=== PATIENT | female | born 1975 | race Caucasian/White ===

== ENCOUNTER 2017-03-06 14:22 | Outpatient (CLI) | payer BC ==
[2017-03-06 15:04] LABS: Appearance,Urine Clear (Clear); Bilirubin,Urine Negative (Negative); Glucose,Urine (UA) Negative (Negative); Ketones,Urine Negative (Negative); Leukocyte Esterase,Urine Large (Negative); Mucus,Urine Rare /hpf; Nitrite,Urine Negative (Negative); PH, Urine 5.5 (5.0-8.0); Particle Count 2672; Protein,Urine Trace (Negative); RBC,Urine 1 /hpf (0-5); Specific Gravity,Urine 1.021 (1.001-1.035); Squamous Epithelial Cell,Urine 4 /hpf (0-4); UA Billing (MACRO vs. MICRO) MICRO; Urobilinogen,Urine <2.0 mg/dL (<2.0); WBC,Urine 12 /hpf (0-5)
[2017-03-06 15:32] VITALS: BP 158/86; PULSE 121; RESP 16; TEMP 96.5
== END 2017-03-06 15:19 | disposition home or self-care (01) ==
LOC: FBPOP 14:22
PROVIDERS: ATTEND Obstetrics & Gynecology
DX: O99.89 Other specified diseases and conditions complicating pregnancy, childbirth and the puerperium (principal); R10.2 Pelvic and perineal pain; Z3A.30 30 weeks gestation of pregnancy
CPT/HCPCS: 81001

== ENCOUNTER 2017-03-29 16:57 | Outpatient (CLI) | payer BC ==
[2017-03-29 17:58] LABS: Basophils % (A) 0 %; CH 31.4; CHCM 35.9; Eosinophils # (A) 0.1 k/uL (0-0.7); Eosinophils % (A) 1 %; HCT 34.2 % (34.0-46.0); HDW 3.36; Luc # (Auto) 0.32; Luc % (Auto) 3; Lymphocytes # (A) 1.9 k/uL (1.0-4.8); Lymphocytes % (A) 20 %; MCHC 35.2 g/dL (31.0-37.0); Mean Platelet Volume 7.3; Monocytes # (A) 0.7 k/uL (0-1.0); Monocytes % (A) 7 %; Neutrophils # (A) 6.7 k/uL (1.3-7.7); Neutrophils % (A) 69 %; RBC 3.89 m/uL (3.80-5.40); RDW 14.3 % (11.5-15.5); WBC 9.7 k/uL (3.8-10.6); WBC (Perox) 9.91
[2017-03-29 18:18] LABS: ALT 32 U/L (9-52); AST 18 U/L (14-36); Blood Urea Nitrogen 7 mg/dL (7-17); LDH 381 U/L (313-618); Non-African American GFR(MDRD) >60 (>60 ml/min/1.73 sqM); Uric Acid 3.3 mg/dL (3.7-7.4)
[2017-03-29 18:35] LABS: Amorphous Sediment,Urine Rare /hpf; Appearance,Urine Clear (Clear); Bacteria,Urine Occasional /hpf; Bilirubin,Urine Negative (Negative); Glucose,Urine (UA) Trace (Negative); Ketones,Urine Negative (Negative); Leukocyte Esterase,Urine Large (Negative); Nitrite,Urine Negative (Negative); PH, Urine 6.5 (5.0-8.0); Particle Count 3372; Protein,Urine Negative (Negative); RBC,Urine 4 /hpf (0-5); Specific Gravity,Urine 1.004 (1.001-1.035); Squamous Epithelial Cell,Urine 3 /hpf (0-4); UA Billing (MACRO vs. MICRO) MICRO; Urobilinogen,Urine <2.0 mg/dL (<2.0); WBC,Urine 11 /hpf (0-5)
[2017-03-29] MEDS ORDERED: WATER IVPB ONE ×2 (18:52)
[2017-03-29] MEDS ORDERED: MAGNESIUM SULFATE IVPB ONE ×2 (18:52)
[2017-03-29] MEDS ORDERED: DEXTROSE 5% IVPB ONE ×2 (18:52)
[2017-03-29] MEDS ORDERED: LABETALOL 200 MG TAB PO STA (18:52)
[2017-03-29] MEDS ORDERED: LIDOCAINE 1% 20 ML VIAL (10MG/ML) FOR IV START INTRADERMA PRN (18:52)
[2017-03-29] MEDS ORDERED: MAGNESIUM SULFATE-WATER PMX 4 GM in WATER FOR INJECTION 50 50ML.BAG IVPB ONE (18:58)
[2017-03-29] MEDS ORDERED: LACTATED RINGERS 1,000 ML IV SCH (19:00)
[2017-03-29] MEDS ORDERED: MAGNESIUM SULFATE WATER PMX IVPB ONE ×2 (19:15→19:30)
[2017-03-29] MEDS ORDERED: WATER FOR INJECTION IVPB ONE ×2 (19:15→19:30)
--- NOTE | 2017-03-29 19:17 | P.HPOB ---
History of Present Illness H&P Date: 03/29/17 Chief Complaint: Visual changes, elevated blood pressures This is a 41-year-old female 5 para 1 at 33-0/7 weeks today who presented to the office for routine nonstress test but complained of visual changes and vertigo symptoms starting today. She also complains of numbness and tingling in her right arm and fingers but generally only happens at night but has been happening all-day today. She has experienced dizziness and some tunnel vision type changes throughout her but today has been much worse. She is on labetalol 50 mg twice a day for chronic hypertension. She also has been followed by maternal- medicine due to a history of delivery at 34 weeks. She has been receiving Carolyn injections weekly. She also has a complete previa and has been followed with ultrasound through Dr. Haley Patel. She was observed in labor and delivery triage and labs were drawn. All of her labs are within normal limits and her protein is negative. Her blood pressures however have been elevated in triage anywhere from the 130s to 180s over 80s to 90s. I did speak with Dr. Haley Patel who does recommend that she be transferred to [facility] in [place] for further care. Obstetrical history: . She did have one vaginal delivery at 34 weeks. She had 2 other miscarriages. She did have a termination of with her last child due to multiple anomalies. Review of Systems Eyes: bilateral blurred vision, bilateral tunnel vision/blind spots Ears, nose, mouth and throat: Reports vertigo Cardiovascular: Reports dyspnea on exertion, Reports high blood pressure, Reports palpitations, Reports shortness of breath Gastrointestinal: Denies abdominal pain Genitourinary: Reports pelvic pain (Pelvic pressure), Reports Musculoskeletal: Reports arm numbness/tingling (Right arm) Musculoskeletal: bilateral: foot swelling Neurological: Reports headaches, Reports vertigo, Reports visual changes Past Medical History Past Medical History: Hypertension Additional Past Medical History / Comment(s): Chronic hypertension History of Any Multi-Drug Resistant Organisms: None Reported Additional Past Surgical History / Comment(s): D&E, D&C Past Psychological History: No Psychological Hx Reported Smoking Status: Never smoker Past Alcohol Use History: None Reported Past Drug Use History: None Reported Medications and Allergies Home Medications Medication Instructions Recorded Confirmed Type Aspirin [Adult Low Dose Aspirin EC] 81 mg PO DAILY 03/06/17 03/29/17 History Famotidine [Pepcid] 20 mg PO BID 03/06/17 03/29/17 History Folic Acid 0.4 mg PO DAILY 03/06/17 03/29/17 History Labetalol [Trandate] 50 mg PO BID 03/06/17 03/29/17 History Pnv,Calcium 72/Iron/Folic Acid 1 tab PO DAILY 03/06/17 03/29/17 History [ Plus Tablet] Allergies Allergy/AdvReac Type Severity Reaction Status Date / Time doxycycline [From Vibramycin] Allergy Rash/Hives Verified 03/29/17 17:14 fluconazole [From Diflucan] Allergy Rash/Hives Verified 03/29/17 17:14 Penicillins Allergy Rash/Hives Verified 03/29/17 17:14 Exam Osteopathic Statement: *. No significant issues noted on an osteopathic structural exam other than those noted in the History and Physical/Consult. - Vital Signs Vital signs: Intake and Output 03/29/17 03/29/17 03/29/17 06:59 14:59 22:59 Other: Weight 94.801 kg Patient Weight 03/30/17 06:59 Weight 94.801 kg Gen.: No acute distress HEENT: Face appears puffy Heart: Regular rate and rhythm Lungs: Clear to auscultation bilaterally Abdomen: heart tones: Reactive Contractions: Rare Extremities: Puffy in hands and feet. Results Result Diagrams: 03/29/17 17:45 03/29/17 17:45 Abnormal Lab Results - Last 24 Hours (Table) 03/29/17 03/29/17 Range/Units 17:05 17:45 Creatinine 0.50 L (0.52-1.04) mg/dL Uric Acid 3.3 L (3.7-7.4) mg/dL Urine Glucose (UA) Trace H (Negative) Ur Leukocyte Esterase Large H (Negative) Urine WBC 11 H (0-5) /hpf Amorphous Sediment Rare H (None) /hpf Urine Bacteria Occasional H (None) /hpf Assessment and Plan (1) 33 weeks gestation of Status: Acute (2) Pre-eclampsia added to pre-existing hypertension Status: Acute Plan: Proceed with 6 g bolus of magnesium sulfate and labetalol [address] Haley Patel. Will transfer to [facility] in [place] per Dr. Patel. Patient is aware of risks and benefits of transfer and agrees to be transferred by ambulance. Time with Patient: Greater than 30
[2017-03-29] MEDS ORDERED: MAGNESIUM SULFATE-D5W PMX 1 GM in DEXTROSE/WATER 1 100ML.BAG IVPB SCH (20:00)
== END 2017-03-29 20:20 | disposition short-term general hospital (02) ==
LOC: FBPOP 16:57
PROVIDERS: ATTEND Obstetrics & Gynecology
DX: O11.3 Pre-existing hypertension with pre-eclampsia, third trimester (principal); Z3A.33 33 weeks gestation of pregnancy
CPT/HCPCS: 59025; 99215; 96361; 96365; 82565; 83615; 84450; 84460; 84520; 84550; 85025; 81001; J3475; 51702

== ENCOUNTER → 2018-03-26 | Outpatient (CLI) | payer BC ==
[2018-03-26 17:50] LABS: Basophils % (A) 0 %; Eosinophils # (A) 0.2 k/uL (0-0.7); Eosinophils % (A) 2 %; HCT 38.1 % (34.0-46.0); Lymphocytes # (A) 2.5 k/uL (1.0-4.8); Lymphocytes % (A) 24 %; MCH 29.9 pg (25.0-35.0); MCHC 34.2 g/dL (31.0-37.0); MCV 87.4 fL (80.0-100.0); Mean Platelet Volume 6.8; Monocytes # (A) 0.6 k/uL (0-1.0); Monocytes % (A) 6 %; Neutrophils # (A) 6.9 k/uL (1.3-7.7); Neutrophils % (A) 66 %; Platelet Count 265 k/uL (150-450); RBC 4.36 m/uL (3.80-5.40); WBC 10.3 k/uL (3.8-10.6)
[2018-03-26 18:02] LABS: Anion Gap 15 mmol/L; Blood Urea Nitrogen 20 mg/dL (7-17); Calcium 9.5 mg/dL (8.4-10.2); Carbon Dioxide 22 mmol/L (22-30); Chloride 103 mmol/L (98-107); Glucose 111 mg/dL (74-99); Potassium 4.2 mmol/L (3.5-5.1); Sodium 140 mmol/L (137-145)
== END | disposition home or self-care (01) ==
LOC: LABPAT 16:41
PROVIDERS: ATTEND Obstetrics & Gynecology
DX: Z01.818 Encounter for other preprocedural examination (principal); Z01.812 Encounter for preprocedural laboratory examination
CPT/HCPCS: 80048; 85025; 93005

== ENCOUNTER 2018-04-01 05:44 | Inpatient (IN) | payer BC ==
[2018-03-25 10:57] VITALS: BMI 34.1
--- NOTE | 2018-03-31 20:39 | P.HPOB ---
History of Present Illness H&P Date: 03/31/18 Chief Complaint: Menorrhagia, pelvic pain, endometriosis, uterine fibroids This is a 42-year-old female 5 para 2 who presents for total abdominal hysterectomy with bilateral salpingo-oophorectomy and IUD removal due to heavy irregular menses despite Mirena IUD. In addition she continues to have pelvic pain and she does have a history of endometriosis. She has a history of frequent menses and periods lasting 4-7 days with heavy flow and significant pain. She would like permanent surgical treatment to control not only her fertility issues but her pelvic pain and irregular bleeding. She does have a history of 2 laparoscopies in the past with ablation of endometriosis. Her pelvic ultrasound showed a uterus measuring 11.5 x 4.3 x 8.6 cm with a large fibroid in the fundus towards the left of the midline measuring 5.5 cm. The IUD was not identified within the endometrial canal and seemed to reside within the endocervix. Both ovaries appeared normal size. Obstetrical history: . History of 1 vaginal delivery and 1 emergency section. She has a history of 1 termination of , and one miscarriage. She did have a dilation and extraction on her fourth child due to a congenital syndrome that was incompatible with life. Gynecologic history: No history of sexually transmitted diseases. Social history: She is . 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 Review of Systems Constitutional: Reports fatigue Eyes: denies blurred vision, denies pain Ears, nose, mouth and throat: Denies headache, Denies sore throat Cardiovascular: Denies chest pain, Denies shortness of breath Respiratory: Denies cough Gastrointestinal: Denies abdominal pain, Denies diarrhea, Denies nausea, Denies vomiting Genitourinary: Reports dysmenorrhea, Reports menorrhagia, Reports pelvic pain Menstruation: Reports menses variable, Reports period heavy Musculoskeletal: Reports low back pain Integumentary: Denies pruritus, Denies rash Neurological: Reports headaches Psychiatric: Denies anxiety, Denies depression Past Medical History Past Medical History: GERD/Reflux, Hypertension Additional Past Medical History / Comment(s): IRREGULAR & PAINFUL MENSTRUAL PERIODS. Endometriosis, history of optic neuritis History of Any Multi-Drug Resistant Organisms: None Reported Past Surgical History: Adenoidectomy, Section, Tonsillectomy Additional Past Surgical History / Comment(s): D&E, D&C, BREAST REDUCTION, RIGHT BREAST LUMPECTOMY, LAPAROSCOPY X2 FOR ENDOMETRIOSIS. Past Anesthesia/Blood Transfusion Reactions: No Reported Reaction, Motion Sickness Past Psychological History: No Psychological Hx Reported Smoking Status: Never smoker Past Alcohol Use History: Occasional Additional Past Alcohol Use History / Comment(s): STATES OVER 7 DRINKS PER WEEK. Past Drug Use History: None Reported - Past Family History Mother Family Medical History: Hypertension, Osteoarthritis (OA) Medications and Allergies Home Medications Medication Instructions Recorded Confirmed Type Acetaminophen Tab [Tylenol Tab] 1,000 mg PO Q6HR PRN 03/25/18 03/25/18 History Ibuprofen 800 mg PO BID PRN 03/25/18 03/25/18 History Metoprolol Succinate (ER) [Toprol 50 mg PO DAILY 03/25/18 03/31/18 History Xl] Multivit with Calcium,Iron,Min 1 each PO DAILY 03/25/18 03/25/18 History [Women's Multivitamin] Allergies Allergy/AdvReac Type Severity Reaction Status Date / Time erythromycin base Allergy Unknown Rash/Hives, Verified 03/25/18 10:43 Vomiting Sulfa (Sulfonamide Allergy Unknown Rash/Hives, Verified 03/25/18 10:44 Antibiotics) Vomiting doxycycline [From Vibramycin] Allergy Rash/Hives, Verified 03/25/18 10:43 Vomiting fluconazole [From Diflucan] Allergy Swelling Verified 03/25/18 10:43 of Tongue Penicillins Allergy Rash/Hives, Verified 03/25/18 10:43 Vomiting Exam Osteopathic Statement: *. No significant issues noted on an osteopathic structural exam other than those noted in the History and Physical/Consult. HEENT: Within normal limits Heart: Regular rate and rhythm Lungs: Clear to auscultation bilaterally Abdomen: Soft, nontender Pelvic exam: Uterus is mid position, nontender, with no adnexal masses or tenderness noted. IUD string is visible. Extremities: Negative Homans Assessment and Plan (1) Menorrhagia with irregular cycle Status: Acute Code(s): N92.1 - EXCESSIVE AND FREQUENT MENSTRUATION WITH IRREGULAR CYCLE SNOMED Code(s): 055256544 (2) Pelvic pain Status: Acute Code(s): R10.2 - PELVIC AND PERINEAL PAIN SNOMED Code(s): 96602592 (3) Uterine leiomyoma Status: Acute Code(s): D25.9 - LEIOMYOMA OF UTERUS, UNSPECIFIED SNOMED Code( s): 58069483 (4) Endometriosis Status: Acute Code(s): N80.9 - ENDOMETRIOSIS, UNSPECIFIED SNOMED Code(s): 496333280 Plan: Proceed with total abdominal hysterectomy with bilateral salpingo-oophorectomy and IUD removal. I have discussed the risks, benefits, and alternative therapies for the above- mentioned procedure and for both sedation/anesthesia as well as necessary blood products administration, if indicated, as they pertain to this patient. The patient has indicated her understanding and acceptance of the risks and procedures discussed.
[~2018-04-01 05:44] MED LIST: DEXAMETHASONE SOD PHOSPHATE 10 MG/ML 1 ML VIAL IV ONE; LIDOCAINE 1% 20 ML VIAL (10MG/ML) FOR IV START INTRADERMA PRN; MIDAZOLAM 2 MG/2 ML VIAL IV PRN; SCOPOLAMINE 1.5MG/72HR PATCH TRANSDERM ONE
[2018-04-01] MEDS ORDERED: ceFAZolin IN SWFI 2 GM/20 ML SYRINGE IVP ONE (06:00)
[2018-04-01] MEDS: LACTATED RINGERS 1,000 ML IV SCH ×4 (06:43→21:43)
[2018-04-01] MEDS ORDERED: ONDANSETRON 4 MG/2 ML VIAL ONE ×2 (06:45→07:32)
[2018-04-01] MEDS ORDERED: MIDAZOLAM 2 MG/2 ML VIAL ONE ×2 (07:01→07:32)
[2018-04-01] MEDS ORDERED: fentaNYL (PF) 50 MCG/ML 2 ML AMP ONE ×3 (07:01→07:32)
[2018-04-01] MEDS ORDERED: MIDAZOLAM 2 MG/2 ML VIAL IVP ONE (07:15)
[2018-04-01] MEDS ORDERED: fentaNYL (PF) 50 MCG/ML 2 ML AMP IVP ONE (07:15)
[2018-04-01] MEDS ORDERED: LIDOCAINE 1% INJ 10MG/ML (20 ML MDV) ONE (07:32)
[2018-04-01] MEDS ORDERED: ROCURONIUM BROMIDE 10 MG/ML 10 ML VIAL IV ONE (07:32)
[2018-04-01] MEDS ORDERED: PROPOFOL 10 MG/ML 20 ML VIAL IV ONE (07:32)
[2018-04-01] MEDS ORDERED: NEOSTIGMINE 1 MG/ML 10 ML VIAL ONE (07:32)
[2018-04-01] MEDS ORDERED: SUCCINYLCHOLINE CHLORIDE 100 MG/5 ML SYR IV ONE (07:32)
[2018-04-01] MEDS ORDERED: MORPHINE SULFATE (PF) 0.3 MG/0.3 ML SYR ONE (07:32)
[2018-04-01] MEDS ORDERED: GLYCOPYRROLATE 0.2 MG/ML 2 ML VIAL ONE (07:32)
[2018-04-01] MEDS ORDERED: ZOLPIDEM 5 MG TAB PO PRN (07:40)
[2018-04-01] MEDS ORDERED: diphenhydrAMINE 50 MG/ML 1 ML VIAL IVP PRN (07:40)
[2018-04-01] MEDS ORDERED: SIMETHICONE 80 MG CHEWABLE PO PRN (07:40)
[2018-04-01] MEDS ORDERED: ONDANSETRON 4 MG/2 ML VIAL IVP PRN (07:40)
[2018-04-01] MEDS ORDERED: METOCLOPRAMIDE 5 MG/ML 2 ML VIAL IVP PRN (07:40)
--- NOTE | 2018-04-01 08:54 | P.OP ---
Date of Procedure: 04/01/18 Preoperative Diagnosis: 1. Menorrhagia with irregular cycle. 2. Pelvic pain. 3. Dysmenorrhea. 4. Endometriosis. Postoperative Diagnosis: Same Procedure(s) Performed: Total abdominal hysterectomy with bilateral salpingo-oophorectomy Removal of IUD Anesthesia: AUGUSTINE Surgeon: Aurora Campbell Train Caller #1: Lyudmila Hodges Estimated Blood Loss (ml): 250 Pathology: other (Uterus with bilateral tubes and ovaries and cervix) Condition: stable Disposition: floor Indications for Procedure: This is a 42-year-old female 5 para 2 who presents for total abdominal hysterectomy with bilateral salpingo-oophorectomy and IUD removal due to heavy irregular menses despite Mirena IUD. In addition she continues to have pelvic pain and she does have a history of endometriosis. She has a history of frequent menses and periods lasting 4-7 days with heavy flow and significant pain. She would like permanent surgical treatment to control not only her fertility issues but her pelvic pain and irregular bleeding. She does have a history of 2 laparoscopies in the past with ablation of endometriosis. Her pelvic ultrasound showed a uterus measuring 11.5 x 4.3 x 8.6 cm with a large fibroid in the fundus towards the left of the midline measuring 5.5 cm. The IUD was not identified within the endometrial canal and seemed to reside within the endocervix. Both ovaries appeared normal size. Operative Findings: Uterus is bulky with a fairly large fibroid on the left side of the uterus near the lower uterine segment. There was an adhesion from the right side of the uterus to the anterior pelvic sidewall. Both ovaries appeared small and normal. Both tubes appeared normal. Description of Procedure: The patient is taken to the operating room where she is placed in the dorsal lithotomy position. She is prepped and draped in the normal sterile fashion including Smith catheter insertion and vaginal prep. Next a bivalve speculum was placed in the patient's vagina and a ring forcep was used to remove the IUD. A Mirena IUD was noted and discarded. It did appear to be low in the cervix. Next the patient was repositioned in a dorsal supine position. She was prepped abdominally. A Pfannenstiel skin incision is made through the previous laparotomy scar with a scalpel. A second knife was used to carry the incision down to the underlying layer of fascia. The fascia was nicked in the midline with a scalpel and then extended laterally bilaterally with Wagner scissors. The superior aspect of the fascial incision was grasped with Siddharth clamps, elevated off the underlying rectus muscle in the midline and then cut with Wagner scissors. The inferior aspect of the fascial incision was grasped with Siddharth clamps, elevated off the underlying rectus muscle in the midline and then cut with Wagner scissors. Next the peritoneum was identified and entered sharply with Wagner scissors. It is extended superiorly and in fairly with Metzenbaum scissors with good visualization of underlying structures. Next the [place] retractor is placed in the bladder blade was inserted. The bowels were packed with a 3 yard laparotomy sponge. Next the uterus is brought up incision and the corneal regions are grasped with Monisha clamps on both sides. Next the infundibulopelvic ligaments are clamped on either side with Gilberto clamps, cut with Wagner scissors, and then sutured with 0 Vicryl suture in Gilberto transfixion stitches. Next the uterine ovarian ligament is clamped with a Gilberto clamp, cut with Wagner scissors, and then sutured with 0 Vicryl suture in Gilberto transfixion stitch. The same procedure is carried out on the right side. The uterine arteries are then clamped with Gilberto clamp on either side. The vesicouterine peritoneum was sharply dissected away from the bladder with Metzenbaum scissors and pushed inferiorly. There was a fairly dense adhesion on the right side of the uterus attached near the bladder and this was clamped with Gilberto clamps, cut and then sutured with 0 Vicryl suture in Gilberto transfixion stitches. The uterine arteries are then cut with Wagner scissors, and sutured with 0 Vicryl suture in Gilberto transfixion stitches. Next the cardinal ligaments were clamped on either side with Gilberto clamp, cut with Wagner scissors, and sutured with 0 Vicryl suture in Gilberto transfixion stitches. The uterosacral ligaments are clamped on either side with Gilberto clamps, cut with Wagner scissors, and sutured with 0 Vicryl suture in Gilberto transfixion stitches on either side. The edges of the vaginal cuff were clamped on either side with a Gilberto clamp, cut with Wagner scissors, and sutured with 0 Vicryl suture in Gilberto transfixion stitches and held on either side. The vaginal mucosa was then cut just below the level of the cervix and the specimen is removed from the field. The edges of the vaginal cuff were held with Siddharth clamps. Next the previously held corners of each side of the vaginal cuff were then whipstitched along the connective tissue on either side and brought through the corner of the cuff and tied. Next the vaginal cuff was sutured with 0 Vicryl suture in a running locked fashion. Hemostasis was noted. Copious irrigation is carried out with warm saline. Excellent hemostasis is noted. All sponges are removed from the abdomen. The peritoneum is then closed with 0 Vicryl suture in a running fashion. The muscle was then reapproximated with 0 Vicryl suture in interrupted fashion. The fascia layer is then closed with 0 PDS suture in a running fashion with the knots buried on either side and in the midline. Next the subcutaneous tissues closed with 2-0 Vicryl suture in a running fashion. The skin is closed with abdulaziz. All sponge and needle counts are correct and the patient is taken to recovery room in stable condition.
[2018-04-01] MEDS: fentaNYL (PF) 50 MCG/ML 2 ML AMP IV PRN ×2 (09:08→09:14)
[2018-04-01] MEDS: KETOROLAC 30 MG/ML 1 ML VIAL IVP PRN (09:11)
[2018-04-01] MEDS ORDERED: MORPHINE SULFATE 2 MG/ML SYRINGE IVP PRN (09:45)
[2018-04-01] MEDS ORDERED: NALBUPHINE 10 MG/ML VIAL (10ML MDV) IV PRN (09:45)
[2018-04-01] MEDS ORDERED: NALOXONE 0.4 MG/ML 1 ML VIAL IV PRN (09:45)
[2018-04-01] MEDS: HYDROmorphone 1 MG/ML 1 ML SYRINGE IVP ONE ×2 (09:46→10:06)
[2018-04-01] MEDS ORDERED: LACTATED RINGERS 1,000 ML IV ONE (09:57)
[2018-04-01] MEDS: SENNOSIDES-DOCUSATE SODIUM 1 EACH TAB PO SCH ×2 (11:36→20:22)
[2018-04-01] MEDS: IBUPROFEN 600 MG TAB PO PRN (23:50)
[2018-04-02] MEDS: IBUPROFEN 600 MG TAB PO PRN ×3 (05:47→20:23)
[2018-04-02 07:15] LABS: Basophils % (A) 0 %; Eosinophils # (A) 0.1 k/uL (0-0.7); Eosinophils % (A) 1 %; HCT 31.2 % (34.0-46.0); HGB 10.4 gm/dL (11.4-16.0); Lymphocytes # (A) 2.5 k/uL (1.0-4.8); Lymphocytes % (A) 20 %; MCH 29.3 pg (25.0-35.0); MCHC 33.3 g/dL (31.0-37.0); MCV 87.9 fL (80.0-100.0); Mean Platelet Volume 6.9; Monocytes # (A) 0.7 k/uL (0-1.0); Monocytes % (A) 6 %; Neutrophils # (A) 8.7 k/uL (1.3-7.7); Neutrophils % (A) 72 %; Platelet Count 255 k/uL (150-450); RBC 3.55 m/uL (3.80-5.40); WBC 12.1 k/uL (3.8-10.6)
--- NOTE | 2018-04-02 08:40 | P.PN ---
Subjective Progress Note Date: 04/02/18 Principal diagnosis: Status post TANNA/BSO postoperative day #1 Patient has been ambulating. Her pain is been fairly well controlled overnight however she is starting to get uncomfortable this morning. Her catheter was removed this morning but she has not urinated yet. Her bleeding has been very minimal. She has not passed flatus yet but does feel gurgling going on. She denies any nausea or vomiting. Objective - Vital Signs Vital signs: Vital Signs Temp 98.2 F 04/02/18 04:00 Pulse 70 04/02/18 04:00 Resp 16 04/02/18 06:00 BP 94/61 04/02/18 04:00 Pulse Ox 97 04/02/18 04:00 Intake & Output 04/01/18 04/02/18 04/02/18 18:59 06:59 18:59 Intake Total 1600 Output Total 630 1500 Balance 970 -1500 Weight 92.986 kg Intake: IV 1600 Output: Urine 380 1500 Uretheral (Smith) 1500 Estimated Blood Loss 250 - Gastrointestinal Gastrointestinal Comment(s): Incision is clean dry and intact with abdulaziz in place. General gastrointestinal: Present: decreased bowel sounds. Absent: distended, tenderness - Labs CBC & Chem 7: 04/02/18 06:31 Labs: Abnormal Lab Results - Last 24 Hours (Table) 04/02/18 Range/Units 06:31 WBC 12.1 H (3.8-10.6) k/uL RBC 3.55 L (3.80-5.40) m/uL Hgb 10.4 L (11.4-16.0) gm/dL Hct 31.2 L (34.0-46.0) % Neutrophils # 8.7 H (1.3-7.7) k/uL Assessment and Plan Assessment: Impression is status post total abdominal hysterectomy with bilateral salpingo- oophorectomy postoperative day #1 (1) Menorrhagia with irregular cycle Current Visit: Yes Status: Acute Code(s): N92.1 - EXCESSIVE AND FREQUENT MENSTRUATION WITH IRREGULAR CYCLE SNOMED Code(s): 933173675 (2) Pelvic pain Current Visit: Yes Status: Acute Code(s): R10.2 - PELVIC AND PERINEAL PAIN SNOMED Code(s): 72403770 (3) Uterine leiomyoma Current Visit: Yes Status: Acute Code(s): D25.9 - LEIOMYOMA OF UTERUS, UNSPECIFIED SNOMED Code(s): 00746183 (4) Endometriosis Current Visit: Yes Status: Acute Code(s): N80.9 - ENDOMETRIOSIS, UNSPECIFIED SNOMED Code(s): 432493636 Plan: Plan is to Encourage ambulation today. She is advised to let her nurse know when she is passing flatus and diet can be advanced at that time. We'll switch to oral pain medications today.
[2018-04-02] MEDS: METOPROLOL SUCCINATE (ER) 50 MG TAB.ER.24H PO SCH (09:10)
[2018-04-02] MEDS: HYDROcodone/APAP 7.5-325MG 1 EACH TAB PO PRN ×3 (10:10→21:23)
[2018-04-02] MEDS: SENNOSIDES-DOCUSATE SODIUM 1 EACH TAB PO SCH ×2 (10:10→20:22)
--- NOTE | 2018-04-02 10:14 | P.PN ---
Progress Note - Text Anesthesia POD 1. Patient is status post TANNA under general endotracheal anesthesia with intra-thecal preservative free morphine 300 g. Mild pruritus, good post-op analgesia, and no headache or other complication.
[2018-04-03] MEDS: KETOROLAC 30 MG/ML 1 ML VIAL IVP PRN ×2 (01:05→07:29)
[2018-04-03] MEDS: HYDROcodone/APAP 7.5-325MG 1 EACH TAB PO PRN ×2 (04:09→10:13)
[2018-04-03] MEDS: SENNOSIDES-DOCUSATE SODIUM 1 EACH TAB PO SCH ×2 (07:56→23:19)
[2018-04-03] MEDS: METOPROLOL SUCCINATE (ER) 50 MG TAB.ER.24H PO SCH (07:56)
[2018-04-03] MEDS: LACTATED RINGERS 1,000 ML IV SCH ×3 (08:08→08:09)
--- NOTE | 2018-04-03 08:46 | P.PN ---
Subjective Progress Note Date: 04/03/18 Principal diagnosis: Status post TANNA/BSO postoperative day #2 Patient states she had a rough night last night. She had been alternating between ibuprofen and [place] through the day but this was not controlling her pain enough. Last night they switched her to Toradol and [place] and this worked better. I did advise her that she cannot go home on the Toradol and therefore we would need to try to get her comfortable on the Motrin today. She is passing flatus now but no bowel movement. She is ambulating without difficulty. She is urinating without difficulty. Bleeding has almost stopped. Objective - Vital Signs Vital signs: Vital Signs Temp 98.5 F 04/03/18 08:00 Pulse 76 04/03/18 08:00 Resp 18 04/03/18 08:00 BP 137/81 04/03/18 08:00 Pulse Ox 96 04/03/18 08:00 Intake & Output 04/02/18 04/03/18 04/03/18 18:59 06:59 18:59 Intake Total 25 Output Total 650 Balance -650 25 Intake: IV 25 Invasive Line 1 25 Output: Urine 650 Other: # Voids 1 1 1 - Constitutional General appearance: Present: no acute distress - Gastrointestinal Gastrointestinal Comment(s): Incision is clean dry and intact with abdulaziz in place. General gastrointestinal: Present: normal bowel sounds, tenderness (Minimal) - Labs CBC & Chem 7: 04/02/18 06:31 Assessment and Plan Assessment: Impression is status post total abdominal hysterectomy with bilateral salpingo- oophorectomy postoperative day #2 (1) Menorrhagia with irregular cycle Current Visit: Yes Status: Acute Code(s): N92.1 - EXCESSIVE AND FREQUENT MENSTRUATION WITH IRREGULAR CYCLE SNOMED Code(s): 962777417 (2) Pelvic pain Current Visit: Yes Status: Acute Code(s): R10.2 - PELVIC AND PERINEAL PAIN SNOMED Code(s): 10666141 (3) Uterine leiomyoma Current Visit: Yes Status: Acute Code(s): D25.9 - LEIOMYOMA OF UTERUS, UNSPECIFIED SNOMED Code(s): 88642183 (4) Endometriosis Current Visit: Yes Status: Acute Code(s): N80.9 - ENDOMETRIOSIS, UNSPECIFIED SNOMED Code(s): 293377630 Plan: We'll switch back to [place] and ibuprofen alternating for pain during the day today. If she is doing better later this afternoon, may discharge home today. Otherwise we will plan to keep until tomorrow for pain control.
[2018-04-03] MEDS: IBUPROFEN 600 MG TAB PO PRN ×2 (14:09→19:26)
[2018-04-03] MEDS: HYDROcodone/APAP 10-325MG 1 EACH TAB PO PRN ×2 (16:07→23:13)
[2018-04-04] MEDS: IBUPROFEN 600 MG TAB PO PRN ×2 (02:26→09:15)
[2018-04-04] MEDS: HYDROcodone/APAP 10-325MG 1 EACH TAB PO PRN (06:12)
--- NOTE | 2018-04-04 07:38 | P.DS ---
Providers Date of admission: 04/01/18 05:44 Expected date of discharge: 04/04/18 Attending physician: Aurora Campbell Primary care physician: Osvaldo Foote - Discharge Diagnosis(es) (1) Menorrhagia with irregular cycle Current Visit: Yes Status: Acute (2) Pelvic pain Current Visit: Yes Status: Acute (3) Uterine leiomyoma Current Visit: Yes Status: Acute (4) Endometriosis Current Visit: Yes Status: Acute Hospital Course: This is a 42-year-old female who underwent a total abdominal hysterectomy with bilateral salpingo-oophorectomy on 04/01/2018. Postoperatively she initially had some pain control issues. Her [place] was increased and alternated with ibuprofen. She is currently on postoperative day #3 and is much better with pain control. She is ambulating and passing flatus and bowel movement. She is urinating without difficulty. Bleeding has stopped. Vital signs are stable. Abdomen is soft with positive bowel sounds 4. Incision is clean dry and intact. Externally show negative Homans. Impression is status post TANNA/BSO postoperative day #3. Plan is to discharge home today. She will be given a prescription for ibuprofen and [place] 10/325 for 7 days. She did sign the opioid start talking form and was counseled regarding opioid safe use. I've advised her to follow up in the office in approximately 1 week for a postoperative check. She is advised to call the office if she has any further questions or concerns prior to her appointment time. Procedures: Total abdominal hysterectomy with bilateral salpingo-oophorectomy on 04/01/2018 Patient Condition at Discharge: Stable Plan - Discharge Summary Discharge Rx Participant: No New Discharge Prescriptions: New HYDROcodone/APAP 10-325MG [[place] 10-325] 1 each PO Q6H PRN #28 tab PRN Reason: Moderate To Severe Pain Ibuprofen [Motrin] 600 mg PO Q6HR PRN #60 tab PRN Reason: Mild Discomfort Continue Acetaminophen Tab [Tylenol] 1,000 mg PO Q6HR PRN PRN Reason: Pain Multivit with Calcium,Iron,Min [Women's Multivitamin] 1 tab PO DAILY Metoprolol Succinate (ER) [Toprol XL] 50 mg PO DAILY Discontinued Ibuprofen 800 mg PO BID PRN PRN Reason: Pain Discharge Medication List Acetaminophen Tab [Tylenol] 1,000 mg PO Q6HR PRN 03/25/18 [History] Metoprolol Succinate (ER) [Toprol XL] 50 mg PO DAILY 03/25/18 [History] Multivit with Calcium,Iron,Min [Women's Multivitamin] 1 tab PO DAILY 03/25/18 [ History] HYDROcodone/APAP 10-325MG [[place] 10-325] 1 each PO Q6H PRN #28 tab 04/04/18 [Rx] Ibuprofen [Motrin] 600 mg PO Q6HR PRN #60 tab 04/04/18 [Rx] Follow up Appointment(s)/Referral(s): Aurora Campbell DO [Doctor of Osteopathic Medicine] - 1 Week Activity/Diet/Wound Care/Special Instructions: Diet as tolerated. Activity as tolerated. No heavy lifting. May shower, but no tub baths for 1 week. No intercourse for 6 weeks. Discharge Disposition: HOME SELF-CARE
[2018-04-04] MEDS: SENNOSIDES-DOCUSATE SODIUM 1 EACH TAB PO SCH (09:10)
[2018-04-04 09:16] VITALS: BP 131/83; PULSE 83; RESP 16; TEMP 98.5
[2018-04-04] MEDS: METOPROLOL SUCCINATE (ER) 50 MG TAB.ER.24H PO SCH (09:19)
== END 2018-04-04 10:50 | disposition home or self-care (01) | DRG 743 ==
LOC: 2ORMAIN 05:44 → 4FBP 09:11
PROVIDERS: ADMIT Obstetrics & Gynecology; ATTEND Obstetrics & Gynecology
PROC: 0UT70ZZ Resection of Bilateral Fallopian Tubes, Open Approach (ICD-10-PCS; 2018-04-01)
PROC: 0UT20ZZ Resection of Bilateral Ovaries, Open Approach (ICD-10-PCS; 2018-04-01)
PROC: 0UPD7HZ Removal of Contraceptive Device from Uterus and Cervix, Via Natural or Artificial Opening (ICD-10-PCS; 2018-04-01)
PROC: 0UT90ZZ Resection of Uterus, Open Approach (ICD-10-PCS; principal; 2018-04-01 07:30)
DX: N80.0 Endometriosis of uterus (principal); D25.9 Leiomyoma of uterus, unspecified; N92.0 Excessive and frequent menstruation with regular cycle; N94.6 Dysmenorrhea, unspecified; I10 Essential (primary) hypertension; K21.9 Gastro-esophageal reflux disease without esophagitis; R10.2 Pelvic and perineal pain; L29.9 Pruritus, unspecified; T40.2X5A Adverse effect of other opioids, initial encounter; Z79.899 Other long term (current) drug therapy; Z86.69 Personal history of other diseases of the nervous system and sense organs; Z88.1 Allergy status to other antibiotic agents; Z88.0 Allergy status to penicillin; Z88.2 Allergy status to sulfonamides; Z82.49 Family history of ischemic heart disease and other diseases of the circulatory system; Z82.61 Family history of arthritis
CPT/HCPCS: 81025; 85025; 86850; 86900; 86901; 88307